=== PATIENT | male | born 1980 | race Caucasian/White ===

== ENCOUNTER 2020-10-18 16:04 | Emergency (ER) | payer SELFPAY ==
[~2020-10-18] VITALS: Ht 182.9 cm; Wt 95.5 kg
[2020-10-18] MEDS ORDERED: OXYC-145 PO (17:13)
[2020-10-18] MEDS ORDERED: oxyCODONE/APAP 5-325mg tablet PO ONE (17:15)
[2020-10-18 17:31] VITALS: BP 124/86
== END 2020-10-18 17:32 | disposition home or self-care (01) ==
LOC: ER 16:05
DX: S42.291A Other displaced fracture of upper end of right humerus, initial encounter for closed fracture (principal); F17.200 Nicotine dependence, unspecified, uncomplicated; W22.8XXA Striking against or struck by other objects, initial encounter; Y93.89 Activity, other specified; Y92.89 Other specified places as the place of occurrence of the external cause; Y99.8 Other external cause status
CPT/HCPCS: 73030; 73110; 99284